=== PATIENT | male | born 1940 | race Caucasian/White ===

== ENCOUNTER 2017-07-29 05:59 | Day surgery (SDC) | payer MEDICARE, BC ==
[2017-07-29] MEDS ORDERED: CEFAZOLIN 2 GM/50 ML (PMX) 50 ML IVPB (06:30)
[2017-07-29] MEDS ORDERED: SOD CHLORIDE 0.9% 1,000 ML IV (06:30)
[2017-07-29] MEDS ORDERED: CEFAZOLIN 1 GM INJ (07:00)
[2017-07-29] MEDS ORDERED: LIDOCAINE 2% (SDV) 5 ML INJ (08:38)
[2017-07-29] MEDS ORDERED: MIDAZOLAM 1 MG/ML 2 ML INJ (08:38)
[2017-07-29] MEDS ORDERED: PROPOFOL 20 ML (08:38)
[2017-07-29] MEDS ORDERED: FENTAnyl 50 MCG/ML VIAL (08:38)
[2017-07-29] MEDS ORDERED: ROPIVACAINE 0.5 % 30 ML VIAL (08:40)
[2017-07-29] MEDS ORDERED: POLYMYXIN/BACITRACIN 1L IRRIG (08:45)
[2017-07-29] MEDS: BUPIVACAINE 0.25% (MPF) 30 ML INJ (09:07)
[2017-07-29] MEDS ORDERED: ONDANSETRON 4 MG INJ (09:11)
[2017-07-29] MEDS ORDERED: DEXAMETHASONE 4 MG/ML 1 ML INJ (09:12)
[2017-07-29] MEDS ORDERED: FAMOTIDINE 20 MG INJ (09:12)
[2017-07-29] MEDS ORDERED: HYDROmorphONE (0.2 MG/ML) 10ML SYG IV (09:56)
[2017-07-29] MEDS: HYDROmorphONE (0.2 MG/ML) 10ML SYG IV ×3 (09:58→10:09)
[2017-07-29] MEDS ORDERED: hydrALAzine 20 MG INJ IV (10:00)
[2017-07-29] MEDS ORDERED: ONDANSETRON 4 MG INJ IV (10:00)
[2017-07-29] MEDS ORDERED: LABETALOL HCL 20MG INJ IV (10:00)
[2017-07-29] MEDS: HYDROCODONE/APAP (5/325) TAB PO (10:12)
== END 2017-07-29 11:45 | disposition home or self-care (01) ==
LOC: SDS 05:59
DX: K40.30 Unilateral inguinal hernia, with obstruction, without gangrene, not specified as recurrent (principal); I10 Essential (primary) hypertension; E11.9 Type 2 diabetes mellitus without complications
CPT/HCPCS: 49507; 82962